=== PATIENT | male | born 1955 | race Caucasian/White ===

== ENCOUNTER 2016-11-06 09:20 | Emergency (ER) ==
[2016-11-06] MEDS ORDERED: ASPIRIN PO STA (09:35)
[2016-11-06 09:45] LABS: MANUAL DIFF NEEDED? NO
[2016-11-06 09:53] LABS: BASO% 0.9 % (0.0-0.8); EOS# 0.29 X1000 (0.0-0.7); EOS% 3.8 % (0.0-10.0); HEMATOCRIT 43.1 % (42.0-52.0); HEMOGLOBIN 14.5 g/dL (14.0-18.0); IMM GRAN# 0.01 X1000 (0.0-0.04); IMM GRAN% 0.1 % (0.0-0.5); LYMPH# 2.38 X1000 (1.2-3.4); LYMPH% 31.5 % (20.5-51.1); MCH 29.6 PG (27-31); MCHC 33.6 g/dL (33-37); MONO# 0.68 X1000 (0.11-0.59); MPV 9.4 FL (7.4-10.4); NEUT% 54.7 % (42.2-75.2); PLT 383 X1000 (130-400)
--- NOTE | 2016-11-06 09:59 | EKG Report ---
Test Performed on : 11/06/2016 09:22:11 AM Test Reason : CHEST PAIN Blood Pressure : / mmHG Vent. Rate : 072 BPM Atrial Rate : 072 BPM P-R Int : 180 ms QRS Dur : 086 ms QT Int : 362 ms P-R-T Axes : 053 065 066 degrees QTc Int : 396 ms Normal sinus rhythm. Normal ECG No previous ECGs available Unconfirmed Result
[2016-11-06 10:05] LABS: INR 0.93 (0.86-1.15); PROTIME 12.8 Seconds (12.1-15.5)
--- NOTE | 2016-11-06 10:18 | PROVIDER DOCUMENTATION ---
HPI-Chest Pain - General Source: patient - History of Present Illness-CP Location: reports: central Chest Pain Radiation: reports: arms (posterior bilateral arms), shoulders ( bilateral), back Quality of Pain: reports: aching Severity in ED: mild Onset/Duration: this morning (05) Timing: still present Context/Activities at Onset: reports: light activity Modifying Factors: improves with: nothing Associated Symptoms: reports: back pain. denies: abdominal pain, diaphoresis, dizziness, edema, fatigue, fever/chills, headache, heartburn, nausea, rash, shortness of breath, swelling/lump in chest, syncope, vomiting, weakness Nitro Today/Relief: no nitro taken today Aspirin Treatment Today: 325 mg x 1, provided by ED Prior Chest Pain/Cardiac Workup: reports: echocardiography, stress test (2006) Similar Symptoms Previously?: Yes Recently Seen Here or By Another Healthcare Provider: Yes <Valencia Vivas - Last Filed: 11/06/16 13:43> <William Talavera - Last Filed: 11/06/16 14:25> - General Chief Complaint: Chest Pain Stated Complaint: CP Time Seen by Provider: 11/06/16 10:13 Allergies/Adverse Reactions: Patient Allergies Allergy/AdvReac Type Severity Reaction Status Date / Time No Known Allergies Allergy Verified 11/06/16 09:28 Home Medications: Home Medication List Medication Instructions Recorded Confirmed Last Taken Type Albuterol [Albuterol Neb] 2.5 mg INH Q4H PRN PRN 09/19/12 11/06/16 Unknown History Methocarbamol [Robaxin-750] 750 mg PO Q6H PRN #40 tablet 04/15/13 11/06/16 Unknown Rx Acetaminophen with Codeine 1 each PO Q4H PRN PRN #20 tablet 11/06/16 Unknown Rx [Tylenol with Codeine #3] Amoxicillin [Amoxil] 875 mg PO Q12HR #20 tablet 11/06/16 Unknown Rx Magnesium Oxide 400 mg PO DAILY 11/06/16 11/06/16 Unknown History Metoprolol [Lopressor] 25 mg PO DAILY #30 tablet 11/06/16 Unknown Rx - History of Present Illness-CP Nature of Presenting Problem: Pt is 60 y/o M presents to the ED with chest pain. Pt states waking at 0430 and chest pain started 0530. Pt denies eating anything prior to CP. Pt states pain radiates to bilateral shoulders and posterior arms. Pt denies N and V. Pt denies dizziness and RINCON. (Valencia Vivas) Review of Systems - Adult - REVIEW OF SYSTEMS - ADULT Constitutional: denies: chills, fever Eyes: denies: blurred vision, double vision Ears, Nose, Mouth & Throat: denies: ear pain, nose pain, throat pain Cardiovascular: reports: chest pain. denies: heart murmur, irregular heart rate Respiratory: denies: cough, shortness of breath, wheezing Gastrointestinal: denies: abdominal pain, diarrhea, nausea, vomiting Genitourinary: denies: dysuria, hematuria, urgency Musculoskeletal: reports: bone pain, back pain, other (bilateral shoulder and posterior arm pain). denies: joint pain, neck pain Integumentary: denies: hives, itching Neurological: denies: dizziness/vertigo, headache/migraines Psychiatric: reports: no symptoms reported Endocrine: reports: no symptoms reported Hematologic/Lymphatic: reports: no symptoms reported Allergic/Immunologic: reports: no symptoms reported All Other Systems: Reviewed and Negative <Valencia Vivas - Last Filed: 11/06/16 13:43> Past History - Adult - PAST MEDICAL HISTORY-ADULT Review of Records: reports: Nursing Assessment Review, Medications Reviewed, Social history reviewed & non-contributory. Major Childhood Illnesses: reports: denies history Cardiovascular: reports: denies history Respiratory: reports: asthma Gastrointestinal: reports: denies history Obstetrical/Gynecological: reports: denies history Genitourinary: reports: denies history Musculoskeletal: reports: denies history Neurological: reports: denies history Endocrine/Immune: reports: denies history Other Conditions: reports: denies history - PRIOR SURGERIES/PROCEDURES Surgical/Procedure History: reports: reviewed, not pertinent, back/neck (back ) - IMMUNIZATION STATUS Childhood Immunizations: See Nurse Assessment Flu Vaccine: See Nurse Assessment - FAMILY HISTORY Family History: reviewed, not pertinent - SOCIAL HISTORY Smoking: quit less than 1 year, cigarettes Provider spent 3-5 mins advising pt. on dangers of tobacco.: Discussed manners to quit use, and f/u contacts for add'l counseling. Substance Use: denies Living Situation: family <Valencia Vivas - Last Filed: 11/06/16 13:43> Physical Exam-General - PHYSICAL EXAM-ADULT Initial Vital Signs Reviewed: Yes - CONSTITUTIONAL General Appearance: appears well, alert, no apparent distress - EYES Eyes: PERRL/EOMI, pink conjunctivae, fundi clear, no AV nicking - HEAD, EARS, NOSE, MOUTH & THROAT HENMT: normocephalic/atraumatic, moist mucous membranes, normal ENT inspection, TMs normal, pharynx normal - NECK Neck: non-tender, full range of motion, supple, normal inspection - RESPIRATORY Respiratory: chest non-tender, lungs clear, normal breath sounds, no pleuratic chest pain, no respiratory distress, no accessory muscle use - CARDIOVASCULAR Cardiovascular: normal peripheral pulses, regular rate, rhythm, no edema, no gallop, no JVD, no murmur - GASTROINTESTINAL (ABDOMEN) Abdominal Exam: normal bowel sounds, non tender, soft, no organomegaly, no pulsatile mass - GENITOURINARY Male Genitalia: deferred Rectal Exam: deferred - LYMPHATIC Lymphatic: no adenopathy - MUSCULOSKELETAL Back Exam: normal inspection, no CVA tenderness, no vertebral tenderness Extremity: normal range of motion, non-tender, normal gait, normal inspection, no pedal edema, no calf tenderness - SKIN Integumentary: normal color, normal turgor, warm/dry - NEUROLOGIC Neurologic: grossly normal - PSYCHIATRIC Psych/Mental Status: normal mood/affect, oriented x 3 <Valencia Vivas - Last Filed: 11/06/16 13:43> Progress - EKG 1 Time of EKG reading by physician:: 09:22 EKG Read and Signed by:: William Talavera EKG Interpretation (*Must complete 3 of following elements*): Normal Rate: 72 Rhythm: normal sinus rhythm Comments: normal ECG 2 Time of EKG reading by physician:: 10:50 EKG Read and Signed by:: William Talavera EKG Interpretation (*Must complete 3 of following elements*): Normal Rate: 74 Rhythm: normal sinus rhythm Comments: normal ECG 3 Time of EKG reading by physician:: 12:08 EKG Read and Signed by:: William Talavera EKG Interpretation (*Must complete 3 of following elements*): Normal Rate: 72 Rhythm: Normal sinus rhythm Comments: Normal ECG - XRAY 1 XRAY: Bilateral XRAY Study: Chest Impression: Normal XRAY Interpretation: negative - CT/MRI 1 CT Study: Angiogram Impression: Abnormal (chronic bronchitis with mucus impaction of small airways.) CT Results: negative for pulmonary embolism; <Valencia Vivas - Last Filed: 11/06/16 13:43> <William Talavera - Last Filed: 11/06/16 14:25> - PLAN OF CARE/RESULTS Progress/Plan/Lab Results: Laboratory Tests 11/06/16 11/06/16 09:39 09:39 WBC 7.55 RBC 4.90 Hgb 14.5 Hct 43.1 MCV 88.0 MCH 29.6 MCHC 33.6 RDW Std Deviation 12.6 Plt Count 383 MPV 9.4 Immature Gran % (Auto) 0.1 Neut % (Auto) 54.7 Lymph % (Auto) 31.5 [place] % (Auto) 9.0 Eos % (Auto) 3.8 Baso % (Auto) 0.9 H Immature Gran # (Auto) 0.01 Neut # (Auto) 4.12 Lymph # (Auto) 2.38 [place] # (Auto) 0.68 H Eos # (Auto) 0.29 Baso # (Auto) 0.07 PT 12.8 INR 0.93 APTT (Factor Assay) 40.0 D-Dimer 0.57 H Orders Category Date Time Status Cardiac Monitoring DIRECTED Care 11/06/16 09:36 Active Oxygen Therapy- ED Nursing DIRECTED Care 11/06/16 09:36 Active Saline Loc NOW Care 11/06/16 09:36 Active CHEST-2 VIEWS [RAD] Stat Exams 11/06/16 09:36 Taken CBC WITH ELECTRONIC DIFF [HEME] Stat Lab 11/06/16 09:39 Completed CK PROFILE [SP CHEM] Stat Lab 11/06/16 09:39 Received COMPREHENSIVE METABOLIC PANEL [CHEM] Stat Lab 11/06/16 09:39 Received D-DIMER PL [COAG] Stat Lab 11/06/16 09:39 Completed MAGNESIUM [CHEM] Stat Lab 11/06/16 09:39 Received PRO B-NATRIURETIC PEPTIDE Stat Lab 11/06/16 09:39 Received PROTIME WITH INR PL [COAG] Stat Lab 11/06/16 09:[address] [COAG] Stat Lab 11/06/16 09:39 Completed TROPONIN T Stat Lab 11/06/16 09:39 Received Aspirin Med 11/06/16 09:35 Discontinued 325 mg PO STAT STA EKG [EKG] Stat Ther 11/06/16 09:36 Draft Vital Signs - 24 hr 11/06/16 11/06/16 11/06/16 09:21 09:29 10:05 Pulse Rate 88 90 Respiratory 16 20 Rate Blood Pressure 151/99 138/78 O2 Sat by Pulse 95 95 Oximetry Laboratory Tests 11/06/16 11/06/16 11/06/16 09:39 09:39 09:39 WBC RBC Hgb Hct MCV MCH MCHC RDW Std Deviation Plt Count MPV Immature Gran % (Auto) Neut % (Auto) Lymph % (Auto) [place] % (Auto) Eos % (Auto) Baso % (Auto) Immature Gran # (Auto) Neut # (Auto) Lymph # (Auto) [place] # (Auto) Eos # (Auto) Baso # (Auto) PT INR APTT (Factor Assay) D-Dimer Sodium 137 Potassium 4.1 Chloride 100 Carbon Dioxide 23 L Anion Gap 15 BUN 17 Creatinine 0.9 Estimated GFR/1.73 m2 > 60 BUN/Creatinine Ratio 19 Glucose 101 Calculated Osmolality 276 Calcium 9.5 Magnesium 2.1 Total Bilirubin 0.50 AST 21 ALT 15 Alkaline Phosphatase 82 Creatine Kinase 339 H Creatine Kinase Index 1.7 CK-MB (CK-2) 5.71 H Troponin T < 0.010 Uyr-V-Awieolnftfx Pept 10 Total Protein 7.2 Albumin 4.8 Globulin 2.0 Albumin/Globulin Ratio 2.0 11/06/16 11/06/16 11/06/16 09:39 09:39 12:04 WBC 7.55 RBC 4.90 Hgb 14.5 Hct 43.1 MCV 88.0 MCH 29.6 MCHC 33.6 RDW Std Deviation 12.6 Plt Count 383 MPV 9.4 Immature Gran % (Auto) 0.1 Neut % (Auto) 54.7 Lymph % (Auto) 31.5 [place] % (Auto) 9.0 Eos % (Auto) 3.8 Baso % (Auto) 0.9 H Immature Gran # (Auto) 0.01 Neut # (Auto) 4.12 Lymph # (Auto) 2.38 [place] # (Auto) 0.68 H Eos # (Auto) 0.29 Baso # (Auto) 0.07 PT 12.8 INR 0.93 APTT (Factor Assay) 40.0 D-Dimer 0.57 H Sodium Potassium Chloride Carbon Dioxide Anion Gap BUN Creatinine Estimated GFR/1.73 m2 BUN/Creatinine Ratio Glucose Calculated Osmolality Calcium Magnesium Total Bilirubin AST ALT Alkaline Phosphatase Creatine Kinase 289 H Creatine Kinase Index 1.7 CK-MB (CK-2) 4.88 Troponin T [id number] Pept Total Protein Albumin Globulin Albumin/Globulin Ratio 11/06/16 12:04 WBC RBC Hgb Hct MCV MCH MCHC RDW Std Deviation Plt Count MPV Immature Gran % (Auto) Neut % (Auto) Lymph % (Auto) [place] % (Auto) Eos % (Auto) Baso % (Auto) Immature Gran # (Auto) Neut # (Auto) Lymph # (Auto) [place] # (Auto) Eos # (Auto) Baso # (Auto) PT INR APTT (Factor Assay) D-Dimer Sodium Potassium Chloride Carbon Dioxide Anion Gap BUN Creatinine Estimated GFR/1.73 m2 BUN/Creatinine Ratio Glucose Calculated Osmolality Calcium Magnesium Total Bilirubin AST ALT Alkaline Phosphatase Creatine Kinase Creatine Kinase Index CK-MB (CK-2) Troponin T < 0.010 Rch-T-Zvirmbopqom Pept Total Protein Albumin Globulin Albumin/Globulin Ratio (Valencia Vivas) Departure <Valencia Vivas - Last Filed: 11/06/16 13:43> - Departure Time of Disposition Order: 14:21 Certified Medical Emergency: Emergent <William Talavera - Last Filed: 11/06/16 14:25> - Departure DIAGNOSIS: Atypical chest pain Hypertension Qualifiers: Hypertension type: essential hypertension Qualified Code(s): I10 - Essential ( primary) hypertension Disposition: HOME 01 Condition: Stable Additional Instructions: ED Follow Up Instructions: You have been treated by a care provider in the Emergency Department. These instructions are being provided to you so you can have an understanding of how to care for yourself upon discharge. Upon discharge from the Emergency Department, you are responsible for making arrangements for follow-up care by a physician of your choice. Take all prescribed medications as directed. Return to the Emergency Department immediately for any new or worsening symptoms. You may call the Physician Referral phone number at [phone] to obtain a list of Physicians who are taking new patients. Prescriptions: Acetaminophen with Codeine [Tylenol with Codeine #3] 1 each PO Q4H PRN PRN #20 tablet PRN Reason: Pain Amoxicillin [Amoxil] 875 mg PO Q12HR #20 tablet Metoprolol [Lopressor] 25 mg PO DAILY #30 tablet Referrals: Les Martínez MD [Primary Care Provider] - Hussain Christiansen MD [STAFF PHYSICIAN] - Attestation - Scribe Verification/Attestation Scribe:: Valencia Vivas Acting as Scribe for:: William Talavera Scribe documention review:: This chart was documented by a scribe and accurately reflects the service the provider performed and the decisions made by the provider. <Valencia Vvias - Last Filed: 11/06/16 13:43> Physician Attestation
[2016-11-06 10:29] LABS: AGAP 15; ALBUMIN 4.8 g/dL (3.5-5.0); ALKALINE PHOSPHATASE 82 U/L (32-122); BUN 17 mg/dL (8-22); CALCIUM 9.5 mg/dL (8.8-10.2); CHLORIDE 100 mmol/L (98-107); COSMO 276; GOT 21 U/L (10-34); GPT 15 U/L (10-44); MAGNESIUM 2.1 mg/dL (1.5-2.7); POTASSIUM 4.1 mmol/L (3.5-5.1); SODIUM 137 mmol/L (136-145); TCO2 23 mmol/L (25-35); TOTAL PROTEIN 7.2 g/dL (6.3-8.3)
--- NOTE | 2016-11-06 10:32 | Diag Imaging Result Document ---
PROCEDURE NAME: CHEST-2 VIEWS - 11/06/2016 CHEST X-RAY, 2 VIEWS: COMPARISON: None. FINDINGS: There are a couple of tiny calcified granulomas in the lungs. No focal infiltrates, pneumothorax, or pleural effusion. Heart size is normal. IMPRESSION: Negative exam.
[2016-11-06] MEDS ORDERED: CATAPRES PO ONE (10:35)
[2016-11-06 10:52] LABS: CK PROFILE 339 U/L (24-204)
--- NOTE | 2016-11-06 11:05 | EKG Report ---
Test Performed on : 11/06/2016 10:50:56 AM Test Reason : Increasing chest pain Blood Pressure : / mmHG Vent. Rate : 074 BPM Atrial Rate : 074 BPM P-R Int : 160 ms QRS Dur : 084 ms QT Int : 372 ms P-R-T Axes : 004 046 050 degrees QTc Int : 412 ms Normal sinus rhythm. Normal ECG When compared with ECG of 06-NOV-2016 09:22, (Unconfirmed) No significant change was found Unconfirmed Result
[2016-11-06 11:23] LABS: CK INDEX 1.7 (0.0-2.5); CK-MB 5.71 ng/mL (0.0-5.0)
[2016-11-06] MEDS ORDERED: NORCO-7.5 PO ONE (11:59)
[2016-11-06 12:55] LABS: CK INDEX 1.7 (0.0-2.5); CK-MB 4.88 ng/mL (0.0-5.0)
--- NOTE | 2016-11-06 13:37 | Diag Imaging Result Document ---
PROCEDURE NAME: ANGIOGRAM/PULMONARY ARTERIES - 11/06/2016 CT PULMONARY ANGIOGRAM WITH INTRAVENOUS CONTRAST: A CT dose reduction protocol was used. COMPARISON: CT abdomen and pelvis 11/28/2014. FINDINGS: Axial CT images of the chest were obtained after administering intravenous contrast. Coronal MIP images were generated. There is no pulmonary embolism. There is extensive chronic bronchitis with some mucous impaction of smaller airways. No infiltrates. Bilateral calcified granulomas. The heart size is normal. Upper abdominal images are unremarkable. Bony structures are intact. IMPRESSION: 1. Negative for pulmonary embolism. 2. Chronic bronchitis with mucus impaction of small airways. [facility]
--- NOTE | 2016-11-06 14:10 | EKG Report ---
Test Performed on : 11/06/2016 12:08:20 PM Test Reason : Chest Pain Blood Pressure : / mmHG Vent. Rate : 072 BPM Atrial Rate : 072 BPM P-R Int : 184 ms QRS Dur : 086 ms QT Int : 376 ms P-R-T Axes : 064 050 059 degrees QTc Int : 411 ms Normal sinus rhythm. Normal ECG When compared with ECG of 06-NOV-2016 10:50, (Unconfirmed) No significant change was found Unconfirmed Result
[2016-11-06 14:27] VITALS: BP 142/91
== END 2016-11-06 14:34 | disposition home or self-care (01) ==
LOC: P.ED 09:20
DX: R07.89 Other chest pain (principal); I10 Essential (primary) hypertension; M25.512 Pain in left shoulder; M25.511 Pain in right shoulder; M54.9 Dorsalgia, unspecified; M79.602 Pain in left arm; M79.601 Pain in right arm; J45.909 Unspecified asthma, uncomplicated; Z87.891 Personal history of nicotine dependence
CPT/HCPCS: 36415; 71020; 71275; 80053; 82550; 82553; 83735; 83880; 84484; 85025; 85379; 85610; 85730; 93005; Q9967